=== PATIENT | female | born 1940 | race Hispanic/Latino ===

== ENCOUNTER 2016-12-10 10:52 | Outpatient (CLI) | payer MEDICARE ==
--- NOTE | 2016-12-11 14:40 | PET Report ---
PET/CT:12/10/16 10:52:00 CLINICAL: Lung cancer. RADIOPHARMACEUTICAL: 13.14mCi F18-FDG. COMPARISON: 01/03/08 PET/CT TECHNIQUE- Following intravenous injection of F-18 FDG and an approximately 60 minute uptake period, CT and PET images from the mid skull to the upper thighs were acquired with the patient in the fasted state. No contrast was administered. The CT protocol used for this PET CT study is designed for attenuation correction and anatomic localization of PET abnormalities. This [employer] practitioner CT is not desired to produce and cannot replace, [id number] diagnostic CT scans with specific imaging protocols for different body parts and indications. Plasma glucose at the time of this test: 141g/dl. The standardized uptake values (SUV) are normalized to patient body weight and indicate the highest activity concentration (SUV max) in a given disease site. FINDINGS: Brain--Physiologic FDG uptake in the visualized regions of the brain. Neck--Physiologic FDG uptake . Chest--Physiologic FDG uptake in mediastinal blood pool and myocardium. Lungs--Extensive FDG avid right lung consolidation involving predominantly the right lower lobe and portions of the right middle lobe with SUV max 7.8. Air bronchograms are identified in most of the involved lung but a 2.9 x 2.7 cm soft tissue density is void of air bronchograms in the right lower lobe. Portions of the involved lung have a lower SUV. An irregular FDG avid right upper lobe lung nodule with SUV 3.3. The left lung is relatively clear with a single peripheral left upper lobe subcentimeter FDG avid opacity.. Pleura/pericardium--No abnormal uptake. Mild right pleural thickening. No pleural effusion. Thoracic nodes--No abnormal uptake. No lymphadenopathy. Hepatobiliary--No abnormal uptake. Liver background SUV mean, as a reference for comparing FDG studies, is 5.3 compared to 3.7 on the last exam. No liver mass. Spleen--No abnormal uptake. Pancreas--No abnormal uptake. Adrenal Glands--No abnormal uptake. Kidneys/Ureters/Bladder--No abnormal uptake. Abdominopelvic Nodes--No abnormal uptake. Bowel/Peritoneum/Mesentery--No abnormal uptake. Pelvic organs--No abnormal uptake. Bones/Soft Tissues--No abnormal uptake. No suspicious bone lesions. IMPRESSION- 1. Extensive FDG avid lung consolidation primarily involving the right lower lobe with a questionable 2.9 cm FDG avid right lower lobe mass. Both tumor and pneumonia are possibilities. 2. No evidence of ernst, hepatic or skeletal metastasis.
== END 2016-12-10 10:53 | disposition home or self-care (01) ==
LOC: PET 10:52
PROVIDERS: ATTEND Internal Medicine
DX: R91.8 Other nonspecific abnormal finding of lung field (principal); Z87.891 Personal history of nicotine dependence
CPT/HCPCS: 78815; 82962; A9552